=== PATIENT | female | born 1965 | race Caucasian/White ===

== ENCOUNTER 2017-11-16 13:57 | Emergency (ER) | payer OTHER ==
[2017-11-16] MEDS ORDERED: HYDROmorphONE/DILAUDID 2 MG/ML INJ IVP ONE (14:23)
[2017-11-16] MEDS ORDERED: ONDANSETRON 4 MG/2 ML VIAL IVP ONE (14:23)
[2017-11-16] MEDS ORDERED: NS 1,000 ML IV ONE (14:23)
--- NOTE | 2017-11-16 14:26 | EDPHY ---
H & P Stated Complaint: llq abd pain x1 mo,increased pain today,unable to walk,nausea Source: Patient, Family Exam Limitations: No limitations - Personal History LMP (Females 10-55): Over 28 Days Ago - Medical/Surgical History Hx Asthma: No Hx Chronic Respiratory Disease: No Hx Diabetes: No Hx Cardiac Disease: No Hx Renal Disease: No Hx Cirrhosis: No Hx Alcoholism: No Hx HIV/AIDS: No Hx Splenectomy or Spleen Trauma: No Other PMH: Med none. Surg-knee,tubal ligation,rectocele repair,tummy tuck, tonsils - Family History Significant Family History: No pertinent family hx - Social History Smoking Status: Never smoked Alcohol Use: None Time Seen by Provider: 11/16/17 14:18 HPI/ROS: CHIEF COMPLAINT: Abdominal pain HISTORY OF PRESENT ILLNESS: Patient is a 52-year-old female with history of tummy tuck and tubal ligation who comes to the emergency department complaining of left lower quadrant pain. She states that this is similar to something that happened about a month ago and also one time in July. She states that previously symptoms lasted for about 3 days and she went to her doctor and obtained an ultrasound of her ovaries that was normal. The pain seemed to resolve spontaneously. Today she has had severe and gradually worsening constant pain since she woke up this morning. No vomiting but she has felt nauseous. No diarrhea. No fever. She states that her pain is primarily in the left lower quadrant. No vaginal bleeding or discharge, no urinary complaints. REVIEW OF SYSTEMS: Constitutional: denies: chills, fever, recent illness, recent injury EENTM: denies: blurred vision, double vision, nose congestion Respiratory: denies: cough, shortness of breath Cardiac: denies: chest pain, irregular heart rate, lightheadedness, palpitations Gastrointestinal/Abdominal: denies: abdominal pain, diarrhea, nausea, vomiting, blood streaked stools Genitourinary: denies: dysuria, frequency, hematuria, pain Musculoskeletal: denies: joint pain, muscle pain Skin: denies: lesions, rash, jaundice, bruising Neurological: denies: headache, numbness, paresthesia, tingling, dizziness, weakness Hematologic/Lymphatic: denies: blood clots, easy bleeding, easy bruising Immunologic/allergic: denies: HIV/AIDS, transplant EXAM: GENERAL: Uncomfortable HEAD: Atraumatic, normocephalic. EYES: Pupils equal round and reactive to light, extraocular movements intact, sclera anicteric, conjunctiva are normal. ENT: TMs normal, nares patent, oropharynx clear without exudates. Moist mucous membranes. NECK: Normal range of motion, supple without lymphadenopathy or JVD. LUNGS: Breath sounds clear to auscultation bilaterally and equal. No wheezes rales or rhonchi. HEART: Regular rate and rhythm without murmurs, rubs or gallops. ABDOMEN: Diffuse abdominal tenderness in all quadrants, no guarding, no rebound BACK: No CVA tenderness, no spinal tenderness, step-offs or deformities EXTREMITIES: Normal range of motion, no pitting or edema. No clubbing or cyanosis. NEUROLOGICAL: Cranial nerves II through XII grossly intact. Normal speech, normal gait. 5/5 strength, normal movement in all extremities, normal sensation PSYCH: Normal mood, normal affect. SKIN: Warm, dry, normal turgor, no visible rashes or lesions. (Emanuel Love) Constitutional: Initial Vital Signs Temperature (C) 36.8 C 11/16/17 14:00 Heart Rate 77 11/16/17 14:00 Respiratory Rate 16 11/16/17 14:00 Blood Pressure 167/87 H 11/16/17 14:00 O2 Sat (%) 98 11/16/17 14:00 O2 Delivery Mode Room Air Allergies/Adverse Reactions: No Known Allergies Allergy (Verified 11/16/17 14:00) Home Medications: Medication Instructions Recorded Ciprofloxacin [Cipro] 500 mg PO BID #7 tab 11/16/17 Hydrocodone/APAP 5/325 [[place] 1 - 2 tab PO Q4 #9 tab 11/16/17 5/325 (RX)] metroNIDAZOLE [Flagyl 500 mg (*)] 500 mg PO BID 7 Days tab 11/16/17 Medical Decision Making - Diagnostics EKG Interpretation: An EKG obtained and was read and documented in trace view. Please see trace view for full reading and report. Sinus rhythm, no acute ischemic changes ( Emanuel Love) ED Course/Re-evaluation: 1500: The patient is signed out to me at change of shift by Dr. Love. I reviewed the case with Dr. Love and his note. Patient is awaiting CT. Patient's CBC showed white count of 9.8. Her chemistry panel was notable for an elevated eye and gap of 17. Patient's LFTs showed an elevated total bilirubin at 2.5. EKG shows normal sinus rhythm, normal rate, normal axis, normal intervals. There are no ST or T-wave abnormalities. EKG is normal as interpreted by me.\ 1555: Patient is awaiting CT results. CT of the abdomen pelvis: Please refer the dictated report by Dr. Scanlon. Patient has left sided diverticulitis. No abscess. Patient's gallbladder shows no signs of cholecystitis or stone. Normal appearing pancreas. Mild splenomegaly. 1615: I discussed the results with the patient. I answered all her questions. On recheck the patient states she was feeling better. Her abdominal exam is benign. Her abdomen is soft, nontender nondistended with no rebound or guarding. I informed the patient that she had an elevated total bilirubin. She is aware that this is liver function tests. She will need close follow-up by her primary care physician to recheck this. She is also aware that she has diverticulitis. This will need to be treated by antibiotics. I explained this in depth. The patient will be given the 1st dose of Flagyl and Cipro here. She was given a prescription upon discharge. She will follow up with primary care physician. She was also given follow-up with Gastroenterology. (Minna Arguello) Differential Diagnosis: My differential includes but is not limited to pancreatitis, cholecystitis, cholangitis, hiatal hernia, small-bowel obstruction, perforation The patient was noted to have diverticulitis on CT. No abscess or obstruction. She also has mild splenomegaly. Patient's laboratory studies showed an elevated total bilirubin. Her gallbladder and pancreas appear normal. No stones or signs of obstruction. Based on the CT findings I do not feel she needs an ultrasound at this time. She will follow up closely with her primary care physician and be recheck. (Minna Arguello) - Data Points Laboratory Results: Laboratory Results 11/16/17 14:20 11/16/17 14:20 Medications Given: Discontinued Medications Ciprofloxacin (Cipro) 500 mg PO EDNOW ONE PRN Reason: Protocol Stop: 11/16/17 16:27 Last Admin: 11/16/17 16:51 Dose: 500 mg Hydromorphone HCl (Dilaudid) 0.5 mg IVP EDNOW ONE Stop: 11/16/17 14:24 Last Admin: 11/16/17 14:40 Dose: 0.5 mg Sodium Chloride (Ns) 1,000 mls @ 0 mls/hr IV EDNOW ONE; Wide Open PRN Reason: Protocol Stop: 11/16/17 14:24 Last Admin: 11/16/17 14:38 Dose: 1,000 mls Metronidazole (Flagyl) 500 mg PO EDNOW ONE PRN Reason: Protocol Stop: 11/16/17 16:27 Last Admin: 11/16/17 16:52 Dose: 500 mg Ondansetron HCl (Zofran) 4 mg IVP EDNOW ONE Stop: 11/16/17 14:24 Last Admin: 11/16/17 14:38 Dose: 4 mg Departure - Departure Disposition: Home, Routine, Self-Care Clinical Impression: Diverticulitis, Elevated bilirubin Condition: Good Instructions: Ciprofloxacin (By mouth), Hydrocodone/Acetaminophen (By mouth), Metronidazole (By mouth), Diverticulitis (ED) Additional Instructions: You were noted to have diverticulitis on CT imaging. This will need treatment with antibiotics. Take your entire course of antibiotics. You also noted to have an elevated bilirubin level. This is a liver function test. This will need close follow-up by your primary care physician, Dr. Pastrana to ensure it is not worsening. Return with increasing pain, fever, vomiting, or any other concerns. You have also been given follow-up with Dr. Dorman from Gastroenterology. Referrals: Burton Dorman MD [Medical Doctor] - 5-7 days, if not improved Prescriptions: Ciprofloxacin [Cipro] 500 mg PO BID #7 tab Hydrocodone/APAP 5/325 [[place] 5/325 (RX)] 1 - 2 tab PO Q4 #9 tab metroNIDAZOLE [Flagyl 500 mg (*)] 500 mg PO BID 7 Days tab
[2017-11-16 14:31] LABS: PLATELET COUNT 235 10^3/uL (150-400)
[2017-11-16 14:38] LABS: INR 1.01 (0.83-1.16); PROTIME(PATIENT) 13.2 SEC (12.0-15.0)
[2017-11-16] MEDS ORDERED: IOPAMIDOL (ISOVUE-300) 100 ML BTL ONE (14:58)
--- NOTE | 2017-11-16 15:05 | CPEKG ---
Heart Rate: 58 RR Interval: 1034 P-R Interval: 160 QRSD Interval: 78 QT Interval: 436 QTC Interval: 429 P [place]: 65 QRS [place]: 10 T Wave [place]: 34 EKG Severity - NORMAL ECG - EKG Impression: SINUS RHYTHM Electronically Signed By: Emanuel Love 16-Nov-2017 15:07:37
[2017-11-16] MEDS ORDERED: metroNIDAZOLE 500 MG TAB PO ONE (16:26)
[2017-11-16] MEDS ORDERED: CIPROFLOXACIN 500 MG TAB PO ONE (16:26)
[2017-11-16 16:38] VITALS: BP 147/88
== END 2017-11-16 17:06 | disposition home or self-care (01) ==
LOC: CED 13:57
DX: K57.90 Diverticulosis of intestine, part unspecified, without perforation or abscess without bleeding (principal); E80.7 Disorder of bilirubin metabolism, unspecified; E86.9 Volume depletion, unspecified; Z98.51 Tubal ligation status
CPT/HCPCS: 74177-PO; 80048-PO; 80076-PO; 83690-PO; 84703-PO; 85025-PO; 85610-PO; 85730-PO; 96374; J1170; J2405; Q9967